=== PATIENT | male | born 1995 | race African-American/Black ===

== ENCOUNTER → 2019-10-18 | Outpatient (CLI) | payer OTHER ==
[2019-10-18 16:18] LABS: FOLLICLE STIMULATING HORMONE 5.6 mIU/mL (1.4-18.1); LUTEINIZING HORMONE 6.7 mIU/mL (1.5-9.3); PROLACTIN 7.3 NG/ML (2.1-17.7)
[2019-10-22 00:06] LABS: ESTROGENS TOTAL 126 pg/mL (40-115); HCG SERUM TUMOR MARKER QUANT < 1 mIU/mL (0-3); TESTOSTERONE FREE (DIRECT) 11.5 pg/mL (9.3-26.5)
== END ==
LOC: M PLALAB 11:47
PROVIDERS: ATTEND Nurse Practitioner Family
DX: N62 Hypertrophy of breast (principal)

== ENCOUNTER → 2019-10-27 | Outpatient (CLI) | payer OTHER | LOC: M PLALAB 10:28 | PROVIDERS: ATTEND Nurse Practitioner Family | DX: N62 Hypertrophy of breast (principal) ==

== ENCOUNTER → 2020-05-08 | Outpatient (CLI) | payer OTHER | LOC: M PLALAB 10:23 | PROVIDERS: ATTEND Nurse Practitioner Family | DX: N62 Hypertrophy of breast (principal) ==